=== PATIENT | female | born 1985 | race Hispanic/Latino ===

== ENCOUNTER 2020-02-05 22:12 | Emergency (ER) | payer MEDICAID ==
--- NOTE | 2020-02-05 22:34 | Emergency Department Report ---
ED Abdominal Pain HPI - General Chief Complaint: Abdominal Pain Stated Complaint: ABDOMINAL PAIN PUI?: No Time Seen by Provider: 02/05/20 22:29 Source: patient, EMS Mode of arrival: Stretcher Limitations: No Limitations - History of Present Illness Initial Comments: Patient is a 34-year-old female that presents emergency room with abdominal pain. Patient states her liver is hurting. Patient states that the abdominal pain started 3 hours ago. Patient patient states her abdominal pain is a 10 out of 10. Patient states is in her bilateral upper quadrants. Patient states that she is also having nausea. Patient states the pain is better with rest and worse with palpation and movement. Patient states that she is having problems with her serotonin is out of whack due to receiving Haldol at [facility]. Patient states she is at [facility] in order to get her serotonin and dopamine receptors fixed. Patient states they admitted her for psychiatric medication management. Patient denies recent travel. Patient denies recent international travel. Patient denies exposure to the novel coronavirus. Patient denies sick contacts. Patient denies fever and chills. Patient denies cough. Patient denies diarrhea. Patient denies coming in contact with anybody with symptoms of the novel coronavirus. MD Complaint: abdominal pain -: Sudden, hour(s) Location: LUQ, RUQ, epigastric Radiation: none Migration to: no migration Severity: severe Severity scale (0 -10): 10 Consistency: constant Improves With: rest Worsens With: movement, other Associated Symptoms: nausea, vomiting. denies: diarrhea, fever, chills, constipation, hematemesis, hematochezia, melena, hematuria, anorexia, syncope - Related Data Previous Rx's Medication Instructions Recorded Last Taken Type Esomeprazole Magnesium [NexIUM] 40 mg PO QDAY #30 capsule. 02/06/20 Unknown Rx Allergies Allergy/AdvReac Type Severity Reaction Status Date / Time doxycycline AdvReac Headache Verified 02/05/20 22:17 haloperidol [From Haldol] AdvReac Anaphylaxis Verified 02/05/20 22:17 Penicillins AdvReac Rash Verified 02/05/20 22:17 Sulfa (Sulfonamide AdvReac Rash Verified 02/05/20 22:17 Antibiotics) sulfamethoxazole AdvReac Rash Verified 02/05/20 22:17 [From Bactrim] tetracycline AdvReac Headache Verified 02/05/20 22:17 trimethoprim [From Bactrim] AdvReac Rash Verified 02/05/20 22:17 ED Review of Systems ROS: Stated complaint: ABDOMINAL PAIN Other details as noted in HPI Constitutional: denies: chills, fever Eyes: denies: eye pain, eye discharge, vision change ENT: denies: ear pain, throat pain Respiratory: denies: cough, shortness of breath, wheezing Cardiovascular: denies: chest pain, palpitations Endocrine: no symptoms reported Gastrointestinal: abdominal pain, nausea, vomiting. denies: diarrhea Genitourinary: denies: urgency, dysuria, discharge Musculoskeletal: denies: back pain, joint swelling, arthralgia Skin: denies: rash, lesions Neurological: denies: headache, weakness, paresthesias Psychiatric: denies: anxiety, depression Hematological/Lymphatic: denies: easy bleeding, easy bruising ED Past Medical Hx - Past Medical History Previous Medical History?: Yes Hx Liver Disease: Yes Hx Psychiatric Treatment: Yes Additional medical history: gall bladder surgery 4 weeks ago. - Surgical History Past Surgical History?: Yes Additional Surgical History: tubal ligation; tonsilectomy, left ankle - Social History Smoking Status: Never Smoker Substance Use Type: None - Medications Home Medications: Home Medications Medication Instructions Recorded Confirmed Last Taken Type Esomeprazole Magnesium [NexIUM] 40 mg PO QDAY #30 capsule. 02/06/20 Unknown Rx ED Physical Exam - General Limitations: No Limitations General appearance: alert, in no apparent distress - Head Head exam: Present: atraumatic, normocephalic - Eye Eye exam: Present: normal appearance - ENT ENT exam: Present: mucous membranes moist - Neck Neck exam: Present: normal inspection - Respiratory Respiratory exam: Present: normal lung sounds bilaterally. Absent: respiratory distress - Cardiovascular Cardiovascular Exam: Present: regular rate, normal rhythm. Absent: systolic murmur, diastolic murmur, rubs, gallop - GI/Abdominal GI/Abdominal exam: Present: soft, tenderness (Epigastric tenderness), normal bowel sounds - Extremities Exam Extremities exam: Present: normal inspection - Back Exam Back exam: Present: normal inspection - Neurological Exam Neurological exam: Present: alert, oriented X3 - Psychiatric Psychiatric exam: Present: normal affect, normal mood - Skin Skin exam: Present: warm, dry, intact, normal color. Absent: rash ED Course Vital Signs 02/05/20 22:35 Temperature 98.6 F Pulse Rate 89 Respiratory 16 Rate Blood Pressure 145/96 [Left] O2 Sat by Pulse 100 Oximetry - Reevaluation(s) Reevaluation #1: I discussed all results and clinical findings with patient. I discussed plan of care with patient. Patient agrees with plan of care. Patient is stable for discharge. Patient will be discharged home. Patient given discharge instructions. Patient voiced understanding of discharge instructions. 02/06/20 01:25 Reevaluation #2: Patient refused treatment in the ER. Patient refused Zofran, Ativan and GI cocktail. Patient signed AMA form. Risk discussed with patient. Patient voiced understanding of risk. Patient will be discharged 02/06/20 01:54 ED Medical Decision Making - Lab Data Result diagrams: 02/05/20 22:53 02/05/20 22:53 - Radiology Data Radiology results: report reviewed CT abdomen pelvis wo con INDICATION: Pt complains of abdominal pain. TECHNIQUE: All CT scans at this location are performed using the following dose modulation technique: Automated exposure control. Helical slices were obtained through the abdomen and pelvis. No contrast is administered. COMPARISON: None available. FINDINGS: Helical slices were obtained through the abdomen and pelvis. No contrast is administered. The lung bases are clear. The lung bases, spleen, pancreas, adrenal glands, and small bowel show no acute abnormality. There is a small nonobstructing calyceal stone in the lower pole the left kidney. There is no hydronephrosis. There are no ureteral calculi. The patient is undergone prior cholecystectomy. Pelvis: There is no obstruction or inflammation. There are no abnormal collections. There is no adenopathy. On review of bone windows, no acute osseous abnormalities are seen. IMPRESSION: There is minimal nephrolithiasis on the left. There is no hydronephrosis. There are no ureteral calculi. There is no obstruction, inflammation, or free air. - Medical Decision Making \Patient is a 34-year-old female that presents emergency room with complaints of upper abdominal pain. Patient severely tender. Patient in a lot of pain. Patient had a CT abdomen and it was negative. Patient's clinical findings are consistent with gastritis and reflux. Patient was offered a GI cocktail, Zofran and Ativan. Patient refused all treatment. Patient given an AMA form. Patient signed AMA form and voiced understanding of risk.. Patient's labs are unremarkable. Patient stable for discharge. Patient was discharged back to [facility]. - Differential Diagnosis Abdominal pain, gastritis, gastroenteritis, Critical care attestation.: If time is entered above; I have spent that time in minutes in the direct care of this critically ill patient, excluding procedure time. ED Disposition Clinical Impression: Abdominal pain Qualifiers: Abdominal location: upper abdomen, unspecified Qualified Code(s): R10.10 - Upper abdominal pain, unspecified Gastritis Qualifiers: Gastritis type: unspecified gastritis Chronicity: acute Gastritis bleeding: without bleeding Qualified Code(s): K29.00 - Acute gastritis without bleeding Nausea & vomiting Qualifiers: Vomiting type: unspecified Vomiting Intractability: non-intractable Qualified Code(s): R11.2 - Nausea with vomiting, unspecified Disposition: LEFT AGAINST MED ADVICE Is pt being admited?: No Does the pt Need Aspirin: No Condition: Stable Instructions: Gastritis (ED), Diet for Ulcers and Gastritis (ED), Gastroesophageal Reflux Disease (ED), Abdominal Pain (ED) Additional Instructions: Patient to be discharged from the ER and transported back to [facility]. Patient to follow-up with primary care in 2 to 3 days. Patient to follow-up with gastroenterology in 2 to 3 days. Patient to rest. Patient to increase water. Patient to eat a reflux diet. Patient to take meds as directed. Patient to avoid NSAIDs and ibuprofen.. Patient to take Tylenol as needed for pain. Patient to take meds as directed. Patient to return to the ER if condition worsens, changes or new symptoms arise. Prescriptions: Esomeprazole Magnesium [NexIUM] 40 mg PO QDAY #30 capsule. Referrals: AURELIA ALVAREZ [Other] - 2-3 Days FAMILIA GONZALEZ MD [Staff Physician] - 2-3 Days Time of Disposition: 01:55
[2020-02-05] MEDS ORDERED: LORazepam 2 MG/ML VIAL IV ONE (22:48)
[2020-02-05 23:08] LABS: Basophils # (Auto) 0.1 K/mm3 (0.0-0.1); Basophils % (Auto) 0.7 % (0.0-1.8); Eosinophils # (Auto) 0.2 K/mm3 (0.0-0.4); Eosinophils % (Auto) 1.8 % (0.0-4.3); Hematocrit 34.9 % (30.3-42.9); Hemoglobin 11.5 gm/dl (10.1-14.3); Lymphocytes # (Auto) 1.8 K/mm3 (1.2-5.4); Lymphocytes % (Auto) 21.1 % (13.4-35.0); Mean Corpuscular HGB Conc 33 % (30-34); Mean Corpuscular Volume 86 fl (79-97); Monocytes # (Auto) 0.6 K/mm3 (0.0-0.8); Monocytes % (Auto) 6.7 % (0.0-7.3); Platelet Count 236 K/mm3 (140-440); Red Blood Count 4.08 M/mm3 (3.65-5.03); Red Cell Distribution Width 15.7 % (13.2-15.2)
[2020-02-05 23:43] LABS: Alanine Aminotransferase 41 units/L (7-56); Albumin 4.2 g/dL (3.9-5); BUN/Creatinine Ratio 32; Blood Urea Nitrogen 19 mg/dL (7-17); Calcium 9.3 mg/dL (8.4-10.2); Hemolysis Index 5
--- NOTE | 2020-02-06 00:28 | Cat Scan Report ---
CT abdomen pelvis wo con INDICATION: Pt complains of abdominal pain. TECHNIQUE: All CT scans at this location are performed using the following dose modulation technique: Automated exposure control. Helical slices were obtained through the abdomen and pelvis. No contrast is adminis tered. COMPARISON: None available. FINDINGS: Helical slices were obtained through the abdomen and pelvis. No contrast is administered. The lung bases are clear. The lung bases, spleen, pancreas, adrenal glands, and small bowel show no a cute abnormality. There is a small nonobstructing calyceal stone in the lower pole the left kidney. T here is no hydronephrosis. There are no ureteral calculi. The patient is undergone prior cholecystectomy. Pelvis: There is no obstruction or inflammation. There are no abnormal collections. There is no adeno alek. On review of bone windows, no acute osseous abnormalities are seen. IMPRESSION: There is minimal nephrolithiasis on the left. There is no hydronephrosis. There are no ureteral calcu li. There is no obstruction, inflammation, or free air. Signer Name: Odilon Salmeron MD Signed: 02/06/2020 12:24 AM Workstation Name: [id number]
[2020-02-06] MEDS ORDERED: LIDOCAINE VISCOUS 2% 15 ML ORAL LIQD PO ONE (01:26)
[2020-02-06] MEDS ORDERED: ALUM-MAG HYDROXIDE-SIMETHICONE 200-200-20MG/5ML ORAL LIQD 30 ML PO ONE (01:26)
[2020-02-06] MEDS ORDERED: ONDANSETRON 4 MG/2 ML INJ IV ONE (01:28)
[2020-02-06 02:09] LABS: Bilirubin,Urine NEG (Negative); Blood,Urine NEG (Negative); Color,Urine Yellow (Yellow); Mucus,Urine FEW /HPF; Protein,Urine <15 mg/dL mg/dL (Negative); Urobilinogen,Urine < 2.0 mg/dL (<2.0)
[2020-02-06 02:10] LABS: HCG Qualitative,Urine Negative (Negative)
[2020-02-06 03:07] VITALS: BP 129/73
== END 2020-02-06 03:33 | disposition left against medical advice (07) ==
LOC: ED 22:12
DX: K29.00 Acute gastritis without bleeding (principal); Z98.51 Tubal ligation status; Z90.79 Acquired absence of other genital organ(s); Z88.1 Allergy status to other antibiotic agents; Z88.0 Allergy status to penicillin
CPT/HCPCS: 36415; 74176; 80053; 81001; 81025; 83690; 85025; 99284; J2060; J2405